=== PATIENT | male | born 1985 | race Caucasian/White ===

== ENCOUNTER 2016-10-10 09:55 | Emergency (ER) | payer BC ==
[~2016-10-10] VITALS: Ht 172.7 cm; Wt 120.2 kg
[2016-10-10 10:18] LABS: Basophils # (auto) 0.1 uL; Basophils % (auto) 0.8 % (0.0-2.0); Eosinophils # (auto) 0.1 uL; Eosinophils % (auto) 0.8 % (0.0-7.0); Hematocrit 46.6 % (41.0-53.0); Lymphocytes # (auto) 2.1 uL; Lymphocytes % (auto) 33.8 % (10.0-50.0); Mean Corpuscular Hemoglobin 28.8 pg (28.0-32.0); Mean Corpuscular Hgb Conc. 34.3 g/dL (32.0-36.0); Mean Corpuscular Volume 83.7 fL (80.0-100.0); Mean Platelet Volume 7.2 fL (7.4-10.4); Monocytes # (auto) 0.4 uL; Monocytes % (auto) 7.4 % (0.0-12.0); Neutrophils # (auto) 3.5 uL; Neutrophils % (auto) 57.2 % (37.0-80.0); Platelet Count (auto) 374 10^3/uL (140-450); Red Cell Distribution Width 13.2 % (11.6-16.0); White Blood Cell 6.1 10^3/uL (4.4-10.8)
[2016-10-10 10:41] LABS: Albumin 4.5 g/dL (3.4-5.0); Alkaline Phosphatase 95 U/L (45-117); Anion Gap 10 (5-15); Aspartate Aminotransferase 21 U/L (15-37); Bilirubin, Total 0.7 mg/dL (0.2-1.0); Blood Urea Nitrogen 14 mg/dL (7-18); Calcium 9.3 mg/dL (8.5-10.1); Carbon Dioxide 26 mmol/L (21-32); Chloride 105 mmol/L (98-107); GFR African American 111 mL/min; GFR Non-African American 92 mL/min; Glucose 95 mg/dL (74-106); Potassium 4.1 mmol/L (3.5-5.1); Sodium 141 mmol/L (136-145); Total Protein 8.2 g/dL (6.4-8.2)
[2016-10-10 11:39] VITALS: BP 148/82
== END 2016-10-10 12:27 | disposition home or self-care (01) ==
LOC: ER 09:57
DX: R07.89 Other chest pain (principal); F41.9 Anxiety disorder, unspecified; K21.9 Gastro-esophageal reflux disease without esophagitis
CPT/HCPCS: 36415; 71020; 80053; 84484; 85025; 93005

== ENCOUNTER 2018-03-14 22:49 | Inpatient (IN) | payer BC, OTHER ==
[~2018-03-14] VITALS: Ht 182.9 cm; Wt 124.7 kg
[2018-03-14 23:29] LABS: Basophils # (auto) 0.1 uL; Basophils % (auto) 1.4 % (0.0-2.0); Eosinophils # (auto) 0.1 uL; Eosinophils % (auto) 1.5 % (0.0-7.0); Hematocrit 44.2 % (41.0-53.0); Hemoglobin 14.6 g/dL (13.5-17.5); Lymphocytes # (auto) 2.2 uL; Lymphocytes % (auto) 28.5 % (10.0-50.0); Mean Corpuscular Hemoglobin 27.9 pg (28.0-32.0); Mean Corpuscular Hgb Conc. 33.1 g/dL (32.0-36.0); Mean Corpuscular Volume 84.3 fL (80.0-100.0); Monocytes # (auto) 0.6 uL; Monocytes % (auto) 7.6 % (0.0-12.0); Neutrophils # (auto) 4.8 uL; Platelet Count (auto) 290 10^3/uL (140-450); Red Blood Cells 5.24 10^6/uL (4.5-5.90); Red Cell Distribution Width 13.9 % (11.8-14.3); White Blood Cell 7.8 10^3/uL (4.4-10.8)
[2018-03-14 23:42] LABS: INR 1.08 (0.9-1.15); Partial Thromboplastin Time 26.9 sec (23.78-33.04); Prothrombin Time 11.5 sec (9.27-12.13)
[2018-03-14 23:48] LABS: Alanine Aminotransferase 34 U/L (16-61); Albumin 4.1 g/dL (3.4-5.0); Anion Gap 7 (5-15); Aspartate Aminotransferase 18 U/L (15-37); BUN/Creatinine Ratio 16.8; Blood Urea Nitrogen 18 mg/dL (7-18); Calcium 8.5 mg/dL (8.5-10.1); Carbon Dioxide 27 mmol/L (21-32); Chloride 107 mmol/L (98-107); GFR African American 102 mL/min; GFR Non-African American 85 mL/min; Glucose 99 mg/dL (74-106); Magnesium 2.3 mg/dL (1.6-2.6); Potassium 3.9 mmol/L (3.5-5.1); Sodium 141 mmol/L (136-145)
[2018-03-14 23:53] LABS: Alkaline Phosphatase 97 U/L (45-117); Bilirubin, Total 0.4 mg/dL (0.2-1.0); Total Protein 7.7 g/dL (6.4-8.2)
[2018-03-15 03:31] LABS: Alcohol, Urine < 3.0 mg/dL (0-5); Amphetamine Screen, Urine NEGATIVE (NEGATIVE); Barbiturate Scree,Urine NEGATIVE (NEGATIVE); Benzodiazephine Screen, Urine NEGATIVE (NEGATIVE); Cannabinoid Screen, Urine NEGATIVE (NEGATIVE); Cocaine Screen, Urine NEGATIVE (NEGATIVE); Opiate Scree,Urine NEGATIVE (NEGATIVE); Phencyclidine Screen, Urine NEGATIVE (NEGATIVE)
[2018-03-15] MEDS ORDERED: LORazepam 2MG/ML-1ML VIAL IV ONE (03:45)
[2018-03-15] MEDS ORDERED: AMIODARONE HCL 150 MG in D5W 5% 100 ML IV ONE (04:15)
[2018-03-15] MEDS ORDERED: AMIODARONE HCL 900 MG IV ONE (05:14)
[2018-03-15] MEDS ORDERED: AMIODARONE HCL (50 MG/ ML) 3 ML VIAL IV ONE (05:15)
[2018-03-15] MEDS: AMIODARONE HCL 900 MG in DEXTROSE 500 ML IV SCH (05:45)
[2018-03-15] MEDS ORDERED: ACETAMINOPHEN 500 MG TAB PO PRN (07:15)
[2018-03-15] MEDS ORDERED: ONDANSETRON HCL 4 MG/2 ML VIAL IV PRN (07:15)
[2018-03-15] MEDS ORDERED: MORPHINE SULF INJ 2 MG/ML SYRINGE 1ML IV PRN (07:15)
[2018-03-15] MEDS ORDERED: HYDROcodone-ACET 5/325MG TAB PO PRN (07:15)
[2018-03-15] MEDS: ALPRAZolam 0.5 MG TAB PO PRN ×2 (09:44→21:01)
[2018-03-15] MEDS ORDERED: AMIODARONE HCL 900 MG in DEXTROSE 500 ML IV SCH (10:20)
[2018-03-15] MEDS: PANTOPRAZOLE 40 MG TAB PO SCH ×2 (12:36→21:01)
[2018-03-15 22:02] VITALS: BP 123/69
[2018-03-15 22:15] VITALS: BP 132/75
[2018-03-15] MEDS ORDERED: ALPR0.25 PO (23:27)
[2018-03-16 05:27] VITALS: BP 116/68
[2018-03-16 08:00] VITALS: BP 116/54
[2018-03-16] MEDS ORDERED: ADENOSINE 105 MG in GIVE UN-DILUTED 0 ML IV STA (08:26)
[2018-03-16 08:54] VITALS: BP 116/54
[2018-03-16] MEDS: PANTOPRAZOLE 40 MG TAB PO SCH ×2 (12:46→20:43)
[2018-03-16 13:00] VITALS: BP 128/70
[2018-03-16] MEDS: ALPRAZolam 0.5 MG TAB PO PRN (17:02)
[2018-03-16 17:07] VITALS: BP 106/50
[2018-03-16 21:26] VITALS: BP 117/69
[2018-03-17 04:48] VITALS: BP 120/64
[2018-03-17] MEDS ORDERED: ADENOSINE 105 MG in GIVE UN-DILUTED 0 ML IV ONE (08:30)
[2018-03-17 09:15] VITALS: BP 108/63
[2018-03-17] MEDS ORDERED: SUCR1TAB38 OR (10:05)
[2018-03-17] MEDS ORDERED: PANT40T PO (10:05)
[2018-03-17 13:00] VITALS: BP 115/72
[2018-03-17] MEDS: PANTOPRAZOLE 40 MG TAB PO SCH (14:23)
[2018-03-17 17:00] VITALS: BP 112/60
== END 2018-03-17 20:20 | disposition home or self-care (01) | DRG 392 ==
LOC: ER 23:01 → TELE 23:02 → TELE-WESTW 03-15 20:18
PROVIDERS: ADMIT Nurse Practitioner Family; ATTEND Internal Medicine
DX: K29.70 Gastritis, unspecified, without bleeding (principal); K21.9 Gastro-esophageal reflux disease without esophagitis; E66.01 Morbid (severe) obesity due to excess calories; F41.9 Anxiety disorder, unspecified; G89.29 Other chronic pain; Z68.37 Body mass index [BMI] 37.0-37.9, adult
CPT/HCPCS: 36415; 71046; 76705; 78452; 80053; 80307; 83735; 84443; 84484; 85025; 85610; 85730; 93005; 93017; 93306; 96365; 96366; 99291; J0153; J2405; J7060